=== PATIENT | female | born 1995 | race Caucasian/White ===

== ENCOUNTER 2017-10-28 16:24 | Emergency (ER) | payer BC ==
[2017-10-28 17:24] VITALS: BP 119/70
[2017-10-28] MEDS ORDERED: Ibuprofen TAB* 400 MG PO ONE (17:30)
--- NOTE | 2017-10-28 17:35 | ED ---
Throat Pain/Nasal Congestion - HPI Summary HPI Summary: 21 yr old with cough and congestion for a few days, a close contact has come down with mono, and she is having a sore throat, and fever. She states sides of her neck hurt a little when turns head side to side. No midline neck stiffness, no headache, no photophobia. No drooling, no stridor, no SOB> Her throat started hurting yesterday and developed fever. - History of Current Complaint Chief Complaint: UCGeneralIllness Time Seen by Provider: 10/28/17 17:16 - Allergies/Home Medications Allergies/Adverse Reactions: Allergies Allergy/AdvReac Type Severity Reaction Status Date / Time No Known Allergies Allergy Verified 10/28/17 17:21 Home Medications: Home Medications Acetaminophen [Extra Strength Non-Aspirin] 500 mg PO Q6HR 10/28/17 [History Confirmed 10/28/17] Sertraline* [Zoloft*] 25 mg PO BEDTIME 10/28/17 [History Confirmed 10/28/17] PMH/Surg Hx/FS Hx/Imm Hx - Surgical History Surgery Procedure, Year, and Place: TONSILLECTOMY Infectious Disease History: No Infectious Disease History: Denies: Traveled Outside the [place] in Last 30 Days - Family History Known Family History: Positive: None - Social History Alcohol Use: Weekly Substance Use Type: Reports: None Smoking Status (MU): Never Smoked Tobacco Review of Systems Positive: Fever, Chills Positive: Sore Throat, Nasal Discharge Positive: Cough All Other Systems Reviewed And Are Negative: Yes Physical Exam Triage Information Reviewed: Yes Vital Signs On Initial Exam: Initial Vitals Temp Pulse Resp BP Pulse Ox 101.8 F 106 15 119/70 100 10/28/17 17:17 10/28/17 17:17 10/28/17 17:17 10/28/17 17:17 10/28/17 17:17 Vital Signs Reviewed: Yes Appearance: Positive: Well-Appearing, No Pain Distress Skin: Positive: Warm, Skin Color Reflects Adequate Perfusion Head/Face: Positive: Normal Head/Face Inspection Eyes: Positive: EOMI ENT: Positive: Pharyngeal erythema, Nasal congestion, TMs normal, Uvula midline. Negative: Tonsillar exudate, Muffled voice, Hoarse voice Neck: Positive: Supple, Nontender, Other: - normal range of motion. Negative: Nuchal Rigidity Respiratory/Lung Sounds: Positive: Clear to Auscultation, Breath Sounds Present Cardiovascular: Positive: RRR. Negative: Murmur Abdomen Description: Positive: Nontender Musculoskeletal: Positive: Strength/ROM Intact Neurological: Positive: Sensory/Motor Intact, Alert, Oriented to Person Place, Time, CN Intact II-III Psychiatric: Positive: Normal - Yasmeen Coma Scale Best Eye Response: 4 - Spontaneous Best Motor Response: 6 - Obeys Commands Best Verbal Response: 5 - Oriented Coma Scale Total: 15 Diagnostics - Vital Signs Vital Signs Temp Pulse Resp BP Pulse Ox 10/28/17 17:17 101.8 F 106 15 119/70 100 - Laboratory Lab Statement: Any lab studies that have been ordered have been reviewed, and results considered in the medical decision making process. EENT Course/Dx - Course Course Of Treatment: 21 yr old with sore throat, runny nose, and coughing. Check mono spot and strep. Step Neg. [place] spot sent and pending. - Diagnoses Provider Diagnoses: Pharyngitis Discharge - Sign-Out/Discharge Documenting (check all that apply): Discharge/Admit/Transfer - Discharge Plan Condition: Good Disposition: HOME Patient Education Materials: Pharyngitis (ED) Referrals: Sloan Sepulveda MD [Primary Care Provider] - 2 Days Additional Instructions: If you develop light sensitivity, severe headache, nausea you should go to the ER. - Billing Disposition and Condition Condition: GOOD Disposition: HOME
== END 2017-10-28 18:01 | disposition home or self-care (01) ==
LOC: UCCORT 16:24
DX: J02.9 Acute pharyngitis, unspecified (principal); R09.81 Nasal congestion; Z90.09 Acquired absence of other part of head and neck
CPT/HCPCS: 36415; 86308; 87651; 99202; A9270-GY; G0463

== ENCOUNTER 2018-12-07 10:58 | Emergency (ER) | payer BC ==
[2018-12-07 11:28] VITALS: BP 128/80
--- NOTE | 2018-12-07 12:11 | UC ---
Dental HPI - HPI Summary HPI Summary: C/O infected erupting #32 wisdom tooth - History of Current Complaint Chief Complaint: UCDentalProblem Stated Complaint: DENTAL COMPLAINT Time Seen by Provider: 12/07/18 11:53 Hx Obtained From: Patient Hx Last Menstrual Period: 11/2018 ?: No Onset/Duration: Sudden Onset, Lasting Days - 4, Worse Since - onset Severity: Moderate Pain Intensity: 3 Aggravating Factor(s): Chewing Alleviating Factor(s): Nothing - Allergies/Home Medications Allergies/Adverse Reactions: Allergies Allergy/AdvReac Type Severity Reaction Status Date / Time No Known Allergies Allergy Verified 12/07/18 11:25 Home Medications: Home Medications Ibuprofen TAB* [Motrin TAB* 400 MG] 400 mg PO Q6H PRN 12/07/18 [History Confirmed 12/07/18] PMH/Surg Hx/FS Hx/Imm Hx Previously Healthy: Yes - Surgical History Surgical History: Yes Surgery Procedure, Year, and Place: TONSILLECTOMY. L shoulder "joint tightening ". Ear tubes - Family History Known Family History: Positive: Cardiac Disease, Hypertension - Social History Occupation: Student Lives: Alone Alcohol Use: None Substance Use Type: None Smoking Status (MU): Never Smoked Tobacco Review of Systems All Other Systems Reviewed And Are Negative: Yes ENT: Positive: Dental Pain Physical Exam Triage Information Reviewed: Yes Appearance: Well-Appearing, Well-Nourished, Pain Distress - mild Vital Signs: Initial Vital Signs Temp 99.2 F 12/07/18 11:25 Pulse 75 12/07/18 11:25 Resp 18 12/07/18 11:25 BP 128/80 12/07/18 11:25 Pulse Ox 100 12/07/18 11:25 Vital Signs Reviewed: Yes Eyes: Positive: Conjunctiva Clear ENT: Positive: Pharynx normal, TMs normal - with scarring Dental: Positive: Percussion Tenderness @ - #32, Cellulitis @ - #32 Neck exam: Normal Respiratory Exam: Normal Cardiovascular Exam: Normal Musculoskeletal Exam: Normal Neurological Exam: Normal Psychological Exam: Normal Skin Exam: Normal Dental Complaint Course/Dx - Differential Dx/Diagnosis Differential Diagnosis/Dx: Dental Abscess, Dental Caries, Fractured Tooth, Gingivitis, Odontogenic Pain Provider Diagnosis: Dental abscess Discharge - Sign-Out/Discharge Documenting (check all that apply): Patient Departure All imaging exams completed and their final reports reviewed: No Studies - Discharge Plan Condition: Stable Disposition: HOME Prescriptions: Penicillin VK 500 MG TAB(NF) [Penicillin VK 500 mg Tab] 500 mg PO QID #40 tab Patient Education Materials: Dental Abscess (ED), Penicillin V (By mouth) Referrals: Sloan Sepulveda MD [Primary Care Provider] - - Billing Disposition and Condition Condition: STABLE Disposition: Home
== END 2018-12-07 12:17 | disposition home or self-care (01) ==
LOC: UCCORT 10:58
DX: K04.7 Periapical abscess without sinus (principal)
CPT/HCPCS: 99212; G0463